=== PATIENT | male | born 1935 | race Caucasian/White ===

== ENCOUNTER → 2016-04-05 | Outpatient (CLI) | payer OTHER | LOC: BHFA 10:00 | PROVIDERS: ATTEND Internal Medicine Cardiovascular Disease | DX: I47.1 Supraventricular tachycardia (principal); I10 Essential (primary) hypertension; I49.9 Cardiac arrhythmia, unspecified ==

== ENCOUNTER → 2016-05-27 | Outpatient (CLI) | payer OTHER | LOC: BHFA 14:00 | PROVIDERS: ATTEND Internal Medicine Cardiovascular Disease | DX: I73.9 Peripheral vascular disease, unspecified (principal) ==

== ENCOUNTER 2016-06-02 12:10 | Emergency (ER) | payer OTHER ==
--- NOTE | 2016-06-02 13:08 | CPEKG ---
Heart Rate: 54 RR Interval: 1111 P-R Interval: 184 QRSD Interval: 90 QT Interval: 468 QTC Interval: 444 P [place]: 33 QRS [place]: -45 T Wave [place]: -15 EKG Severity - ABNORMAL ECG - EKG Impression: SINUS RHYTHM EKG Impression: PROBABLE LEFT ATRIAL ABNORMALITY EKG Impression: LEFT ANTERIOR FASCICULAR BLOCK EKG Impression: LVH WITH SECONDARY REPOLARIZATION ABNORMALITY Electronically Signed By: Gita Brown 02-Jun-2016 20:55:02
--- NOTE | 2016-06-02 13:14 | EDPHY ---
H & P Time Seen by Provider: 06/02/16 12:57 HPI/ROS: CHIEF COMPLAINT: Hypertension HISTORY OF PRESENT ILLNESS: This patient is an 81 year old male who was referred to the Emergency Department by Dr. Clemons for increasing hypertension since Monday. He has a history of hypertension that he reports has been well- controlled over the past ten years with metoprolol, Cardura, and Diovan. In March, in a routine visit to his PCP, his blood pressure was elevated with systolic up to 180; he was referred to cardiology for further management including Holter monitor and echocardiogram with no reported findings. On Monday , his systolic was measured at [address] Clemons who then increased Diovan from 80mg to 160mg daily. He has been measuring his blood pressure at home and reports that his systolic measurement has been in the 180s over the past few days. Dr. Clemons suggested he increase his metoprolol today without improvement to his blood pressure. Upon arrival, he reports no symptoms and states that he has been asymptomatic since initial presentation. He denies headache, lightheadedness, or weakness. Medical history also includes intermittent atrial fibrillation. REVIEW OF SYSTEMS: Constitutional: No fever, no chills Eyes: No visual changes ENT: No sore throat Respiratory: No cough, no shortness of breath Cardiac: No chest pain Gastrointestinal: No nausea, no vomiting, no abdominal pain Genitourinary: No hematuria, no dysuria Musculoskeletal: No leg pain or swelling Skin: No rash Neurological: No headache, no numbness, no weakness Psychiatric: No depression Past Medical/Surgical History: BPH; hypertension (Cardura, metoprolol, Diovan); intermittent atrial fibrillation. Followed by Dr. Clemons, cardiology. PCP: Dr. 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 smoked Physical Exam: General Appearance: Alert, no distress Eyes: Pupils equal and round, no conjunctival pallor or injection ENT, Mouth: Mucous membranes moist Neck: Normal inspection Respiratory: Lungs are clear to auscultation Cardiovascular: Regular rate and rhythm Gastrointestinal: Abdomen is soft and non- tender Neurological: A&O, nonfocal, normal gait Skin: Warm and dry, no rash Extremities: Nontender, no pedal edema Psychiatric: Mood and affect normal Constitutional: Initial Vital Signs Temperature (C) 36.3 C 06/02/16 12:12 Heart Rate 56 L 06/02/16 12:12 Respiratory Rate 16 06/02/16 12:12 Blood Pressure 240/87 H 06/02/16 12:12 O2 Sat (%) 94 06/02/16 12:12 O2 Delivery Mode Room Air Allergies/Adverse Reactions: No Known Allergies Allergy (Unverified 06/02/16 12:18) Home Medications: Medication Instructions Recorded Aspirin 06/02/16 Diovan 06/02/16 Lipitor 06/02/16 Metoprolol Succinate 06/02/16 Omeprazole 06/02/16 Valsartan/Hydrochlorothiazide 1 each PO DAILY #30 tablet 06/02/16 [Diovan Hct 320-25 mg Tablet] amLODIPine BESYLATE [Norvasc 5 mg 5 mg PO DAILY #30 tab 06/02/16 (*)] Medical Decision Making - Diagnostics EKG Interpretation: EKG interpreted by me reveals normal sinus rhythm, rate 54; left anterior fascicular block; LVH. 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 The patient was hypertensive at 240/87 at triage with HR 56 but has been asymptomatic since presentation. IV established. Will proceed with EKG and labs. 1325: I discussed the case with staff at [facility]; the on-call vegetable sorter will consult in the Emergency Department. 1334: Dr. Elian Ricci, cardiology, at bedside. He will discuss medication adjustments with the patient and devise a medication plan to treat hypertension. He recommends that the patient be discharged home once his hypertension has been adequately addressed and follow-up with Dr. Clemons as an outpatient. 1336: Repeat blood pressure: 211/109. 5mg PO amlodipine administered per Dr. Ricci's orders. Diovan/HCTZ given orally. Labs reviewed and are unremarkable. I discussed Dr. Ricci's recommendations with the patient who is agreeable to this treatment plan. 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 Clemons as requested. He will be discharged home in good condition and started on Norvasc and Diovan/HCTZ. BP 156/71 on discharge, pt remains asymptomatic Differential Diagnosis: Differential diagnosis includes though not limited to acute coronary syndrome, pulmonary edema, intracranial hemorrhage, acute renal failure. - Data Points Laboratory Results: Laboratory Results 06/02/16 13:20 06/02/16 13:20 06/02/16 06/02/16 13:20 13:20 WBC 5.44 10^3/uL 10^3/uL (3.80-9.50) RBC 4.14 10^6/uL L 10^6/uL (4.40-6.38) Hgb 12.9 g/dL L g/dL (13.7-17.5) Hct 38.1 % L % (40.0-51.0) MCV 92.0 fL fL (81.5-99.8) MCH 31.2 pg pg (27.9-34.1) MCHC 33.9 g/dL g/dL (32.4-36.7) RDW 13.2 % % (11.5-15.2) Plt Count 167 10^3/uL 10^3/uL (150-400) MPV 10.2 fL fL (8.7-11.7) Neut % (Auto) 45.4 % % (39.3-74.2) Lymph % (Auto) 44.3 % % (15.0-45.0) [place] % (Auto) 8.8 % % (4.5-13.0) Eos % (Auto) 0.7 % % (0.6-7.6) Baso % (Auto) 0.6 % % (0.3-1.7) Nucleat RBC Rel Count 0.0 % % (0.0-0.2) Absolute Neuts (auto) 2.47 10^3/uL 10^3/uL (1.70-6.50) Absolute Lymphs (auto) 2.41 10^3/uL 10^3/uL (1.00-3.00) Absolute Monos (auto) 0.48 10^3/uL 10^3/uL (0.30-0.80) Absolute Eos (auto) 0.04 10^3/uL 10^3/uL (0.03-0.40) Absolute Basos (auto) 0.03 10^3/uL 10^3/uL (0.02-0.10) Absolute Nucleated RBC 0.00 10^3/uL 10^3/uL (0-0.01) Immature Gran % 0.2 % % (0.0-1.1) Immature Gran # 0.01 10^3/uL 10^3/uL (0.00-0.10) Sodium 139 mEq/L mEq/L (134-144) Potassium 3.9 mEq/L mEq/L (3.5-5.2) Chloride 102 mEq/L mEq/L (97-110) Carbon Dioxide 26 mEq/l mEq/l (22-31) Anion Gap 11 mEq/L mEq/L (8-16) BUN 21 mg/dL mg/dL (7-23) Creatinine 1.0 mg/dL mg/dL (0.7-1.3) Estimated GFR > 60 Glucose 100 mg/dL mg/dL (70-100) Calcium 10.5 mg/dL H mg/dL (8.5-10.4) Medications Given: Discontinued Medications Amlodipine Besylate (Norvasc) 5 mg PO EDNOW ONE Stop: 06/02/16 14:32 Last Admin: 06/02/16 15:24 Dose: 5 mg Amlodipine Besylate (Norvasc) 5 mg PO EDNOW ONE Stop: 06/02/16 15:31 Last Admin: 06/02/16 15:25 Dose: Not Given HCTZ/Valsartan (Diovan Hct 80-12.5 Mg Tab) 2 each PO EDNOW ONE Stop: 06/02/16 15:31 Last Admin: 06/02/16 15:24 Dose: 2 each Labetalol HCl (Trandate Injection) 10 mg IVP EDNOW ONE Stop: 06/02/16 13:27 Last Admin: 06/02/16 13:36 Dose: Not Given Departure - Departure Disposition: [facility] Acute Clinical Impression: Hypertension Qualifiers: Hypertension type: essential hypertension Qualified Code(s): I10 - Essential ( primary) hypertension Condition: Good Instructions: Hypertension (ED) Additional Instructions: 1. Take Norvasc as prescribed. Discontinue your previous blood pressure medications. 2. Call tomorrow to schedule a follow-up appointment with Dr. Clemons for further evaluation and discussion of your treatment plan. 3. Return to the Emergency Department for systolic blood pressure readings remaining above 220; lightheadedness, syncope, or pre-syncope; chest pain or palpitations; or other serious concerns. Referrals: Brayden Clemons MD [Medical Doctor] - As per Instructions Prescriptions: amLODIPine BESYLATE [Norvasc 5 mg (*)] 5 mg PO DAILY #30 tab Valsartan/Hydrochlorothiazide [Diovan Hct 320-25 mg Tablet] 1 each PO DAILY #30 tablet Report Scribed for: Gita Brown Report Scribed by: Agnieszka Bourgeois Date of Report: 06/02/16 Time of Report: 13:16 Physician Review and Approval Statement: 06/02/16 13:16 Portions of this note were transcribed by a coroner/medical examiner. I personally performed a history, physical exam, medical decision making, and confirmed accuracy of information the transcribed note.
[2016-06-02] MEDS ORDERED: LABETALOL HCL 5 MG/ML 20 ML MDV IVP ONE (13:26)
[2016-06-02 13:33] LABS: % IMMATURE GRANULYOCYTES 0.2 % (0.0-1.1); ABSOLUTE IMMATURE GRANULOCYTES 0.01 10^3/uL (0.00-0.10); ADD DIFF? NO; ADD MORPH? NO; ADD SCAN? NO; ATYPICAL LYMPHOCYTE FLAG 20 (0-99); FRAGMENT RBC FLAG 0 (0-99); HEMATOCRIT 38.1 % (40.0-51.0); HEMOGLOBIN 12.9 g/dL (13.7-17.5); LEFT SHIFT FLG 0 (0-99); LIPEMIA HEMOLYSIS FLAG 90 (0-99); MEAN CELL HEMOGLOBIN 31.2 pg (27.9-34.1); MEAN CELL HEMOGLOBIN CONCENTR. 33.9 g/dL (32.4-36.7); MEAN PLATELET VOLUME 10.2 fL (8.7-11.7); PLATELET CLUMPS FLAG 0 (0-99); PLATELET COUNT 167 10^3/uL (150-400); RED BLOOD CELL COUNT 4.14 10^6/uL (4.40-6.38); RED CELL DISTRIBUTION WIDTH 13.2 % (11.5-15.2)
[2016-06-02 13:50] LABS: ANION GAP 11 mEq/L (8-16); CALCIUM 10.5 mg/dL (8.5-10.4); CARBON DIOXIDE 26 mEq/l (22-31); CHLORIDE 102 mEq/L (97-110); GLOMERULAR FILTRATION RATE > 60; GLUCOSE 100 mg/dL (70-100); POTASSIUM 3.9 mEq/L (3.5-5.2); SODIUM 139 mEq/L (134-144)
[2016-06-02] MEDS ORDERED: amLODIPine BESYLATE 5 MG TAB PO ONE (14:31)
[2016-06-02] MEDS ORDERED: VALSARTAN/HCTZ 80-12.5MG TAB PO ONE (15:30)
[2016-06-02 16:06] VITALS: PULSE 61; RESP 17
[2016-06-02 16:18] VITALS: BP 156/71; TEMP 98.8; O2SAT 96
--- NOTE | 2016-06-02 16:50 | GCON ---
[f rep st] CONSULTATION BRIEF CARDIOLOGY CONSULT. 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 He is followed by partner, Brayden Clemons. Over the last week to 10 days his blood pressure has been increasing with readings in the office as high as 210. His medications have uptitrated. T rufino routine blood pressure check was 220 systolic and he was advised to come to the emergency room for further evaluation. The patient was having no chest pain. He had no neurologic sequelae. He h ad no shortness of breath, PND, orthopnea. He has been compliant with his medications. He is compl iant with regular exercise. CURRENT MEDICATIONS: His current outpatient medications include omeprazole, metoprolol succinate, L ipitor, Diovan 160 mg and daily aspirin. He also takes an alpha joel for BPH. ALLERGIES: He has no known drug allergies. PHYSICAL EXAMINATION: GENERAL: On my arrival, patient is alert and oriented. VITAL SIGNS: His bl ood pressure was 240/110 in the left arm, 220/110 in the right arm. NECK: He had no carotid bruits . CHEST: Clear without rales. CARDIAC: Regular rate and rhythm without S4. ABDOMEN: Soft. EXT REMITIES: Femoral pulses were +2 and equal. Extremities were free of edema. DIAGNOSTIC DATA: His EKG revealed sinus rhythm at a rate of 54. Subtle T-wave inversions are noted inferiorly. IMPRESSION: Hypertension, essential. RECOMMENDATIONS: Up titration of his Diovan to 320 mg with 25 mg of hydrochlorothiazide. We will a dd 5 mg of amlodipine. Continue current dose of metoprolol. We will follow up tomorrow for blood p ressure check. There are no indications for admission or more aggressive management at this time wi thout evidence of neurologic impairment, or heart failure, angina. The patient will be followed up tomorrow. Questions were answered with him. Discussed with Dr. Brown. /[id number]/MODL
== END 2016-06-02 16:17 | disposition still patient (30) ==
DX: I10 Essential (primary) hypertension (principal); Z79.82 Long term (current) use of aspirin
CPT/HCPCS: 93005; 99284; J3490

== ENCOUNTER → 2016-10-13 | Outpatient (CLI) | payer OTHER | LOC: CIMAGING 13:23 | PROVIDERS: ATTEND Internal Medicine Pulmonary Disease | DX: R91.1 Solitary pulmonary nodule (principal); J43.9 Emphysema, unspecified; I25.10 Atherosclerotic heart disease of native coronary artery without angina pectoris | CPT/HCPCS: 71250-PO ==

== ENCOUNTER → 2017-08-08 | Outpatient (CLI) | payer OTHER | LOC: CIMAGING 11:20 | PROVIDERS: ATTEND Internal Medicine Pulmonary Disease | DX: R91.1 Solitary pulmonary nodule (principal); J43.2 Centrilobular emphysema; J98.4 Other disorders of lung | CPT/HCPCS: 71250-PO ==

== ENCOUNTER → 2017-08-17 | Outpatient (CLI) | payer OTHER | LOC: BHCLAF 13:30 | PROVIDERS: ATTEND Internal Medicine Cardiovascular Disease | DX: Z01.810 Encounter for preprocedural cardiovascular examination (principal) | CPT/HCPCS: 93005-PO ==

== ENCOUNTER → 2018-02-08 | Outpatient (CLI) | payer OTHER | LOC: CIMAGING 10:15 | PROVIDERS: ATTEND Internal Medicine Pulmonary Disease | DX: R91.1 Solitary pulmonary nodule (principal); J43.2 Centrilobular emphysema; J98.11 Atelectasis; I25.10 Atherosclerotic heart disease of native coronary artery without angina pectoris; I70.8 Atherosclerosis of other arteries; M47.814 Spondylosis without myelopathy or radiculopathy, thoracic region | CPT/HCPCS: 71250-PO ==

== ENCOUNTER → 2018-05-16 | Outpatient (CLI) | payer OTHER, BC | LOC: CIMAGING 08:35 | PROVIDERS: ATTEND Internal Medicine Cardiovascular Disease | DX: K86.9 Disease of pancreas, unspecified (principal); I70.0 Atherosclerosis of aorta | CPT/HCPCS: 76705-PO ==

== ENCOUNTER → 2018-07-31 | Outpatient (CLI) | payer OTHER, BC | LOC: FIMAGING 12:02 ==